=== PATIENT | male | born 1995 ===

== ENCOUNTER 2021-06-20 01:02 | Emergency (ER) ==
[~2021-06-20] VITALS: Ht 165.1 cm; Wt 73.2 kg
--- NOTE | 2021-06-20 04:32 | ECGEPIP ---
[facility] - ED Test Date: 2021-06-20 Pat Name: CAILIN LOPEZ Department: Room: - Gender: Male Account Service Associate: MARIBELL : 1995 Requested By: EKTA Mercado Order Number: [id number] Reading MD: Chase Nath Measurements Intervals Roberts Rate: 86 P: 26 WA: 126 QRS: 49 QRSD: 98 T: -11 QT: 352 QTc: 421 Interpretive Statements Normal sinus rhythm NONSPECIFIC T WAVE ABNORMALITY(S) NO PRIORS FOR COMPARISON Electronically Signed on 06-20-2021 4:32:01 EDT by Chase Nath
== END 2021-06-20 04:06 | disposition left against medical advice (07) ==
LOC: M ED 01:02
DX: Z53.21 Procedure and treatment not carried out due to patient leaving prior to being seen by health care provider (principal)